=== PATIENT | female | born 2000 | race African-American/Black ===

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

== ENCOUNTER 2021-01-05 18:33 | Emergency (ER) | payer MEDICAID ==
[~2021-01-05] VITALS: Ht 160 cm; Wt 52.2 kg
[~2021-01-05 18:33] MED LIST changes: +ACET-2605 PO; +ACET-868 PO; +ASCO-352 PO; -ASCO500C17 GT; -CRAN3875 GT; +CRAN425C6 PO; +DIVA-78 PO; -DIVA500T2 PO; -LORA-259 GT; -MERO1PIG IV; -TEMA15CA GT; +TERA5CAP4 PO
--- NOTE | 2021-01-05 19:02 | NUR ---
THE PATIENT IS BIB RA FROM [facility] C/O BURNING SENSATION ON URINATION. ALERT AND ORIENTED X3. TRACHEOSTOMY PRESENT. IN ROOM AIR AND DENIES SOB. RESPIRATION REGULAR AND UNLABORED. WILL CONTINUE TO MONITOR THE PATIENT.
--- NOTE | 2021-01-05 19:04 | NUR ---
CARRERO CATH PRESENT UPON ARRIVAL
--- NOTE | 2021-01-05 19:05 | NUR ---
UPON ASSESSMENT, PT HAS RT UPPER ARM PICC LINE
--- NOTE | 2021-01-05 19:11 | NUR ---
URINE COLLECTED AND SENT TO THE LAB
[2021-01-05 19:18] LABS: BILIRUBIN,URINE Negative (NEGATIVE); COLOR,URINE YELLOW (YELLOW); LEUKOCYTE ESTERASE ,URINE Large (NEGATIVE); NITRITE, URINE Negative (NEGATIVE); PROTEIN,URINE 100 mg/dl (NEGATIVE); UGLUCOSE Negative (NEGATIVE); UROBILINOGEN,URINE 0.2 EU/dL (0.2)
--- NOTE | 2021-01-05 19:22 | NUR ---
REC'D REPORT FROM DESTINY BAIRD FOR VIKASH
--- NOTE | 2021-01-05 19:30 | NUR ---
PAT AT BEDSIDE FOR EVAL
[2021-01-05 19:31] LABS: RBC,URINE 21-50 /HPF (0-2)
[2021-01-05 19:32] LABS: BACTERIA,URINE 2+ /HPF (None Seen); SQUAMOUS EPITHELIAL CELL,UR Few /HPF (None Seen); WBC,URINE 51-80 /HPF (0-3)
[2021-01-05] MEDS ORDERED: MORPHINE SULFATE INJ 4 MG/ML DISP.SYRIN ONE (19:38)
[2021-01-05] MEDS ORDERED: ONDANSETRON HCL/PF 4 MG/2 ML VIAL ONE (19:38)
--- NOTE | 2021-01-05 19:47 | NUR ---
CALLED PHARMACY FOR ZINC OXIDE
[2021-01-05] MEDS ORDERED: ZINC OXIDE 56.7 GM TUBE TP PRN (20:00)
[2021-01-05] MEDS ORDERED: CEFTRIAXONE 1GM BAG (ER ONLY) 1 GM/50 ML PIGGYBACK IV ONE (20:00)
[2021-01-05] MEDS ORDERED: MORPHINE SULFATE INJ 2 MG/ML DISP.SYRIN IV ONE (20:00)
[2021-01-05] MEDS ORDERED: ONDANSETRON HCL/PF 4 MG/2 ML VIAL IV ONE (20:00)
[2021-01-05] MEDS ORDERED: CEFU500T66 PO (20:13)
[2021-01-05] MEDS ORDERED: CEFTRIAXONE 1GM BAG (ER ONLY) 50 ML IV ONE (20:15)
--- NOTE | 2021-01-05 20:20 | NUR ---
[facility] CALLED FOR TRANSPORT. ETA 45MIN.
--- NOTE | 2021-01-05 20:57 | NUR ---
Patient discharged to home in stable condition. Written and verbal after care instructions given. Patient verbalizes understanding of instruction. Pt taken home via ambulance
--- NOTE | 2021-01-05 20:57 | NUR ---
GAVE REPORT TO EMS
[2021-01-05 21:02] VITALS: BP 124/88
== END 2021-01-05 20:57 ==
LOC: ER 18:37
DX: N39.0 Urinary tract infection, site not specified (principal); B96.20 Unspecified Escherichia coli [E. coli] as the cause of diseases classified elsewhere; G82.20 Paraplegia, unspecified; Z91.048 Other nonmedicinal substance allergy status; Z79.899 Other long term (current) drug therapy
CPT/HCPCS: 51702; 81001; 84703; 87086; 96365; 96375; 99284; J0696; J2270; J2405

== ENCOUNTER 2021-01-07 11:59 | Emergency (ER) | payer MEDICAID ==
[~2021-01-07] VITALS: Ht 160 cm; Wt 52.2 kg
[~2021-01-07 11:59] MED LIST changes: +CEFU500T66 PO
--- NOTE | 2021-01-07 12:15 | NUR ---
BIB [facility] FROM [facility],C/O PAIN IN HER NECK WHEN SCHOOL BUS MECHANIC MOVED HER. PATIENT ALERT AND ORIENTED X3. IN ROOM AIR AND DENIES SOB. RESPIRATION REGULAR AND UNLABORED. WILL CONTINUE TO MONITOR THE PATIENT.
--- NOTE | 2021-01-07 13:25 | NUR ---
CALLED TRANSPORT [facility] WITH ETA OF 60 MINS PER ARIANNE .
--- NOTE | 2021-01-07 14:08 | NUR ---
REPORT GIVEN TO NURSE BAINS Addendum: 01/07/21 at 1409 by CECILY [facility] [phone]
--- NOTE | 2021-01-07 14:50 | NUR ---
Patient discharged in stable condition. Written and verbal after care instructions given. Patient verbalizes understanding of instruction but refused to sign discharge papers. Addendum: 01/07/21 at 1451 by CECILY mother aware
[2021-01-07 14:51] VITALS: BP 131/84
== END 2021-01-07 14:51 ==
LOC: ER 12:19
DX: M54.2 Cervicalgia (principal); Z88.8 Allergy status to other drugs, medicaments and biological substances; Z79.899 Other long term (current) drug therapy; Z93.0 Tracheostomy status
CPT/HCPCS: 72125; 99284; A4624

== ENCOUNTER 2021-01-30 13:11 | Inpatient (IN) | payer MEDICAID ==
[~2021-01-30] VITALS: Ht 165.1 cm; Wt 57.2 kg
--- NOTE | 2021-01-30 13:25 | NUR ---
[facility] C/O FEVER, COUGH AND ABSCESS L LEG. PT IS AAOX2, NOT IN RESPIRATORY DISTRESS, HOOKED TO MAORI LIAISON ADVISER, KEPT RESTED AND COMFORTABLE. WILL CONTINUE TO MONITOR.
--- NOTE | 2021-01-30 14:00 | NUR ---
PT IV LINE ESTABLISHED BLOOD DRAWN AND SENT TO LAB.
[2021-01-30] MEDS ORDERED: MORPHINE SULFATE INJ 2 MG/ML DISP.SYRIN ONE (14:34)
[2021-01-30] MEDS ORDERED: ACETAMINOPHEN ES 500 MG TABLET ONE (14:34)
[2021-01-30] MEDS ORDERED: MORPHINE SULFATE INJ 2 MG/ML DISP.SYRIN IV ONE (15:00)
[2021-01-30] MEDS ORDERED: PIPERACILLIN /TAZOBACTAM 3.375 G in IV D5W 50 ML IV ONE (15:00)
[2021-01-30] MEDS ORDERED: ACETAMINOPHEN 325 MG TABLET PO ONE (15:00)
[2021-01-30] MEDS ORDERED: IV NS 0.9% 1,000 ML BAG IV ONE (15:00)
--- NOTE | 2021-01-30 15:07 | NUR ---
REPLACED OLD CARRERO CATH PER PT REQUEST.
[2021-01-30 15:14] LABS: BASOPHILS % (AUTO) 0.3 % (0.0-2.0); EOSINOPHILS % (AUTO) 1.4 % (0.0-6.0); HEMATOCRIT 33 % (33-45); HEMOGLOBIN 10.7 g/dL (11.5-14.8); LYMPHOCYTES % (AUTO) 12.2 % (20.0-44.0); MEAN CORPUSCULAR HGB CONC 33 g/dl (31.0-36.0); MEAN CORPUSCULAR VOLUME 80 fL (82-100); MONOCYTES # (AUTO) 1.3 K/uL (0.1-1.30); MONOCYTES % (AUTO) 15.1 % (2.0-12.0); NEUTROPHILS # (AUTO) 5.9 K/uL (1.8-8.9); PLATELET COUNT (AUTO) 177 K/uL (150-450); RED BLOOD CELL COUNT(AUTO) 4.04 MIL/uL (4.0-5.2); WHITE BLOOD COUNT (AUTO) 8.4 K/uL (4.3-11.0)
--- NOTE | 2021-01-30 15:20 | NUR ---
SUBMITTED MOVE SHEET
--- NOTE | 2021-01-30 15:22 | NUR ---
CALLED NURSING SUP FOR BED
[2021-01-30 15:25] LABS: BILIRUBIN,URINE SMALL (NEGATIVE); COLOR,URINE YELLOW (YELLOW); LEUKOCYTE ESTERASE ,URINE SMALL (NEGATIVE); NITRITE, URINE NEGATIVE (NEGATIVE); PH,URINE 6.5 (5.0-8.0); PROTEIN,URINE TRACE mg/dl (NEGATIVE); UGLUCOSE NEGATIVE (NEGATIVE); UROBILINOGEN,URINE 0.2 EU/dL (0.2)
[2021-01-30 15:30] LABS: RBC,URINE TOO NUMEROUS TO COUN /HPF (0-2); WBC,URINE 51-80 /HPF (0-3)
[2021-01-30 15:31] LABS: BACTERIA,URINE 1+ /HPF (None Seen); SQUAMOUS EPITHELIAL CELL,UR Few /HPF (None Seen)
[2021-01-30 15:36] LABS: BAND % (MANUAL) 23 % (0.0-5.0); LYMPHOCYTES % (MANUAL) 9 % (16-48); NEUTROPHILS % (MANUAL) 50 (42-76)
[2021-01-30 15:37] LABS: EOSINOPHILS % (MANUAL) 2 % (0-4); MONOCYTES % (MANUAL) 16 % (0-11.0)
--- NOTE | 2021-01-30 16:11 | NUR ---
SPOKED TO DESTINY HOLLIDAY OF [facility]. PER MG THE SKIN TEAR STARTED AT 01/26/21. MD LUNDBERG.
[2021-01-30] MEDS ORDERED: IBUP-1957 PO (17:00)
[2021-01-30 17:09] LABS: ALANINE AMINOTRANSFERASE 9 U/L (12-78); ALBUMIN 2.6 g/dL (3.4-5.0); ALKALINE PHOSPHATASE 67 U/L (46-116); ASPARTATE AMINOTRANSFERASE 19 U/L (15-37); BILIRUBIN,DIRECT 0.1 mg/dL (0.0-0.2); BILIRUBIN,TOTAL 0.2 mg/dL (0.2-1.0); CALCIUM, SERUM 8.6 mg/dL (8.5-10.1); CARBON DIOXIDE 24 mmol/L (21-32); CHLORIDE 100 mmol/L (98-107); GLUCOSE 95 mg/dL (74-106); SODIUM SERUM 135 mmol/L (136-145); TOTAL PROTEIN, SERUM 7.6 g/dL (6.4-8.2); UREA NITROGEN, BLOOD 9 mg/dL (7-18)
--- NOTE | 2021-01-30 17:18 | NUR ---
RECEIVED VERBAL AUTH FROM [facility] FAX# TO FAX [facility]ACESHEET AND CLINICALS.
--- NOTE | 2021-01-30 17:27 | NUR ---
TELE BED 106
--- NOTE | 2021-01-30 17:39 | NUR ---
CALLED [facility], PAGED DR ROGERS
--- NOTE | 2021-01-30 17:51 | NUR ---
REPORT GIVEN TO DESTINY BELTRE FOR VIKASH.
--- NOTE | 2021-01-30 18:00 | NUR ---
RN NOTE RECEIVED REPORT FROM EXCEPTIONAL NEEDS TEACHER MADY.
[2021-01-30] MEDS ORDERED: VANCOMYCIN 1 GM VIAL ONE (18:01)
[2021-01-30] MEDS: VANCOMYCIN 1 GM in IV D5W 250 ML IV SCH (18:06)
[2021-01-30] MEDS ORDERED: CT SWABBABLE VALVE TRANS SET 1 EA INFUS.SET MC ONE (18:08)
[2021-01-30] MEDS ORDERED: IOHEXOL-300 100 ML VIAL IV ONE (18:08)
[2021-01-30] MEDS ORDERED: IV NS 0.9% 250 ML IV ONE (18:08)
[2021-01-30] MEDS ORDERED: MAGNESIUM HYDROXIDE 30 ML UDC PO PRN (18:30)
[2021-01-30] MEDS ORDERED: NA PHOS,M-B/NA PHOS,DI-BA 1 EA ENEMA RC PRN (18:30)
[2021-01-30] MEDS ORDERED: Z GUARD REMEDY 2 OZ OINT TP PRN (18:30)
[2021-01-30] MEDS ORDERED: MAG HYDROX/AL HYDROX/SIMETH 30 ML UDC PO PRN (18:30)
[2021-01-30] MEDS ORDERED: BISACODYL SUPP (10 MG) 10 MG/SUPP.RECT SUPP.RECT RC PRN (18:30)
[2021-01-30] MEDS ORDERED: ZOLPIDEM TARTRATE 5 MG TABLET PO PRN (18:30)
[2021-01-30] MEDS ORDERED: HYDROCODONE/APAP 5/325MG TABLET PO PRN (18:30)
[2021-01-30] MEDS ORDERED: ONDANSETRON HCL/PF 4 MG/2 ML VIAL IVP PRN (18:30)
--- NOTE | 2021-01-30 18:50 | NUR ---
RN NOTE RECEIVED PATIENT FROM ER VIA GURNEY ON ROOM AIR WITH TRACHEOSTOMY. VTS WNL, WILL CONTINUE TO MONITOR.
--- NOTE | 2021-01-30 20:00 | NUR ---
RN NOTE RECEIVED PT ALERT AND ORIENTED X 3. NO S/SX OF DISTRESS NOTED. PT WITH TRACH, CAPPED. TOLERATING ROOM AIR. DENIES ANY SOB. ADMITTED FOR SEPSIS. AFEBRILE AT THIS TIME, CARRERO IN PLACE, NO HEMATURIA NOTED. IV ON LHAND PATENT AND INTACT. ON TELE MONITORING SHOWS SINUS RHYTHM WITH HR OF 92. PT WITH WOUND DRESSING ON THIGH AND FOOT. PT REFUSED TO HAVE WOUND CHECKED AND TAKE PICTURES, EXPLAINED RISKS AND BENEFITS. ALL SAFETY MEASURES IN PLACE, CALL LIGHT WITHIN REACH, BED LOCKED IN LOWEST POSITION, SIDE RAILS UP. WILL CONTINUE TO MONITOR.
[2021-01-30 20:19] LABS: THYROID STIMULATING HORMONE 0.807 uIU/mL (0.358-3.74)
[2021-01-30 20:56] VITALS: BP 93/56
[2021-01-30] MEDS: IV NS 0.9% 1,000 ML IV PRN (21:09)
[2021-01-30] MEDS: METHOCARBAMOL (500MG) 500 MG TABLET PO SCH (21:09)
[2021-01-30] MEDS: LEVETIRACETAM (250 MG) 250 MG TABLET PO SCH (21:09)
[2021-01-30] MEDS: DIVALPROEX SODIUM 500 MG TABLET.DR PO SCH (21:09)
[2021-01-30] MEDS: ENOXAPARIN SODIUM 40 MG/0.4 ML DISP.SYRIN SQ SCH (21:09)
[2021-01-30] MEDS: VENLAFAXINE 37.5 MG TABLET PO SCH (21:09)
[2021-01-30] MEDS: QUETIAPINE FUMARATE 100 MG TABLET PO SCH (21:10)
[2021-01-31] MEDS: PIPERACILLIN /TAZOBACTAM 3.375 G in IV D5W 50 ML IV SCH ×3 (00:04→11:42)
--- NOTE | 2021-01-31 00:45 | NUR ---
RN NOTE PT REFUSED TO HAVE VITAL SIGNS CHECKED. NO SIGNS OF DISTRESS NOTED. CONTINUE ON TELE MONITORING SHOWS SINUS TACH WITH HR OF 102. WILL CONTINUE TO MONITOR.
[2021-01-31 04:00] VITALS: BP 115/68
[2021-01-31] MEDS: METHOCARBAMOL (500MG) 500 MG TABLET PO SCH ×3 (05:01→20:21)
[2021-01-31] MEDS: VANCOMYCIN 1 GM in IV D5W 250 ML IV SCH ×2 (05:05→17:40)
--- NOTE | 2021-01-31 07:30 | NUR ---
RN Notes Received Pt A/O x3 with no s/sx distress noted. Pt has a capped trach, tolerating RA well. Denies SOB. Pt has a mcgrath, no hematuria noted. IV on the left hand gauge 20 is patent and intact, flushed well. All safety measures in place, call light within reach, bed locked in lowest position with side rails up.
[2021-01-31 08:00] VITALS: BP 137/86
[2021-01-31] MEDS ORDERED: VANCOMYCIN 1 GM in IV D5W 250 ML IV SCH (08:00)
[2021-01-31] MEDS: VENLAFAXINE 37.5 MG TABLET PO SCH ×2 (08:26→20:21)
[2021-01-31] MEDS: ASCORBIC ACID 500 MG TABLET PO SCH ×2 (08:28→16:02)
[2021-01-31] MEDS: FAMOTIDINE (20 MG) 20 MG TABLET PO SCH (08:28)
[2021-01-31] MEDS: DOCUSATE SODIUM 100 MG CAPSULE PO SCH ×2 (08:28→16:08)
[2021-01-31] MEDS: DIVALPROEX SODIUM 500 MG TABLET.DR PO SCH ×2 (08:28→20:21)
[2021-01-31] MEDS: LEVETIRACETAM (250 MG) 250 MG TABLET PO SCH ×2 (08:29→20:21)
[2021-01-31] MEDS: GABAPENTIN 100 MG CAPSULE PO SCH ×2 (08:29→16:08)
--- NOTE | 2021-01-31 08:40 | NUR ---
RN Notes Pt complaining 9/10 neck pain. Offered pain medication, but pt refused [place]. Medication wasted, witnessed by DESTINY Jamil. Will notify MD of pain med refusal.
[2021-01-31] MEDS: ZINC SULFATE 220 MG CAPSULE PO SCH (08:44)
[2021-01-31] MEDS ORDERED: ZINC SULFATE 220 MG CAPSULE PO SCH (09:00)
[2021-01-31] MEDS: ACETAMINOPHEN 325 MG TABLET PO PRN ×2 (09:38→16:02)
[2021-01-31] MEDS: TERAZOSIN HCL 5 MG CAPSULE PO SCH (09:48)
--- NOTE | 2021-01-31 11:12 | NUR ---
telemedicine physician note trach suction done will monitor
--- NOTE | 2021-01-31 12:41 | NUR ---
DESTINY Notes Dr. Segundo at bedside, said it's okay to give 2mg morphine. Will follow up. Addendum: 01/31/21 at 1321 by WILMA NGUYEN RN trach care done ,suction done ,all needs attended
[2021-01-31] MEDS: MORPHINE SULFATE INJ 2 MG/ML DISP.SYRIN IV PRN ×3 (13:07→21:15)
--- NOTE | 2021-01-31 15:22 | NUR ---
RN Notes Wound culture per MD order.
[2021-01-31 16:00] VITALS: BP 105/69
[2021-01-31] MEDS: MEROPENEM 1 G in IV NS 0.9% 100 ML IV SCH ×2 (16:01→23:52)
[2021-01-31 17:28] LABS: BASOPHILS % (AUTO) 0.2 % (0.0-2.0); HEMATOCRIT 30 % (33-45); HEMOGLOBIN 9.9 g/dL (11.5-14.8); LYMPHOCYTES # (AUTO) 1.1 K/uL (0.8-4.8); LYMPHOCYTES % (AUTO) 19.5 % (20.0-44.0); MEAN CORPUSCULAR HGB CONC 33 g/dl (31.0-36.0); MEAN CORPUSCULAR VOLUME 81 fL (82-100); MONOCYTES # (AUTO) 0.8 K/uL (0.1-1.30); MONOCYTES % (AUTO) 14.8 % (2.0-12.0); NEUTROPHILS # (AUTO) 3.5 K/uL (1.8-8.9); NEUTROPHILS % (AUTO) 62.5 % (43.0-81.0); PLATELET COUNT (AUTO) 155 K/uL (150-450); RED BLOOD CELL COUNT(AUTO) 3.66 MIL/uL (4.0-5.2); WHITE BLOOD COUNT (AUTO) 5.6 K/uL (4.3-11.0)
[2021-01-31 17:44] LABS: CREATININE 0.9 mg/dL (0.6-1.3); PHOSPHORUS 3.7 mg/dL (2.5-4.9); POTASSIUM 4.1 mmol/L (3.5-5.1)
[2021-01-31] MEDS: ENOXAPARIN SODIUM 40 MG/0.4 ML DISP.SYRIN SQ SCH (17:55)
--- NOTE | 2021-01-31 18:00 | NUR ---
tele 5rn note new hl on rt fa eladio 24 inserted with good blood return
[2021-01-31 18:16] LABS: BAND % (MANUAL) 4 % (0.0-5.0); EOSINOPHILS % (MANUAL) 4 % (0-4); LYMPHOCYTES % (MANUAL) 16 % (16-48); MONOCYTES % (MANUAL) 7 % (0-11.0); NEUTROPHILS % (MANUAL) 69 (42-76)
--- NOTE | 2021-01-31 18:21 | NUR ---
RN Closing Notes Pt is in bed on RA, oxygen saturation 97%. Pt is sinus tachy with HR of 102. Pt has a mcgrath with 1100 ml output. Pt had one bm on shift, soft and brown. Pt was last given morphine for neck pain / at 1711, reported 3/10 pain at 1741. Pt has a left hand 20 gauge IV running Merrem @33.33ml/hr and right forearm 24 gauge IV Vancomycin running @150ml/hr. Safety measures in place with bed alarm on, in the lowest locked position, and call light within reach. Will continue to monitor.
[2021-01-31 20:00] VITALS: BP 105/72
--- NOTE | 2021-01-31 20:33 | NUR ---
Patient refused [place] after repeatedly calling for pain medicine. Stated that she only wants Morphine. Educated pt that medication is only every 4 hours. Patient stated she thought it had already been 4 hours but she will wait since it has not been.
[2021-01-31] MEDS ORDERED: MEROPENEM 500 MG in IV NS 0.9% 50 ML IV SCH (21:00)
[2021-01-31] MEDS: QUETIAPINE FUMARATE 100 MG TABLET PO SCH (21:14)
--- NOTE | 2021-01-31 22:30 | NUR ---
Patient refuses monday night wound pictures or a full skin check without pictures. Patient states "it is my body I can choose to do whatever I want. There is no reason you need to be checking my skin." Educated that it is hospital protocol to check for any skin issues especially with paraplegic patients. Patient still decline.
[2021-01-31] MEDS: IV NS 0.9% 1,000 ML IV PRN (23:53)
--- NOTE | 2021-02-01 | NUR ---
when unable to find extra extension cord for patient's cell phone weed inspector patient replies to nurse "F you, get out of here!"
--- NOTE | 2021-02-01 00:14 | NUR ---
refused midnight VS x3. Counted respirations and HR found from monitor and documented.
[2021-02-01] MEDS: MORPHINE SULFATE INJ 2 MG/ML DISP.SYRIN IV PRN ×5 (01:31→20:30)
[2021-02-01 04:00] VITALS: BP 102/67
--- NOTE | 2021-02-01 05:15 | NUR ---
patient refused am labs including vanco trough. Educated patient that this lab is very important to see how m uch of this drug is in bloodstream because its a potential nephrotoxin/ can affect the kidneys. Patient agreeable for lab to try and draw blood
[2021-02-01] MEDS: METHOCARBAMOL (500MG) 500 MG TABLET PO SCH ×3 (05:41→20:29)
--- NOTE | 2021-02-01 05:50 | NUR ---
[employer] Home Technician unable to get blood for Vanco trough or any other AM labs d/t hard stick. Per clean in places operator. They will resend different clean in places operator later to retry later. Will hold vanco until labs can be drawn.
[2021-02-01] MEDS: VANCOMYCIN 1 GM in IV D5W 250 ML IV SCH (06:00)
--- NOTE | 2021-02-01 07:00 | NUR ---
Patient has been A&Ox4. VSS. Medicated for gen pain and neck pain x3 per patient c/o severe pain. Tolerating IVF and IV ABX well. No signs of distress. Suctioned trach x2, clear thin sputum.
[2021-02-01] MEDS: IV NS 0.9% 1,000 ML IV PRN (07:17)
[2021-02-01] MEDS: FAMOTIDINE (20 MG) 20 MG TABLET PO SCH (07:30)
--- NOTE | 2021-02-01 07:30 | NUR ---
Pbhlebotomist able to get blood -vanco trough pending. endorsed to next shift.
--- NOTE | 2021-02-01 07:46 | NUR ---
RN OPENING NOTES Pt is Awake, alert and oriented x 3-4, no respiratory distress, no SOB. On IV NS @ 75cc/hr. Safety precautions implemented, bed locked in lowest position, call light within reach.
[2021-02-01 07:51] LABS: BASOPHILS % (AUTO) 0.3 % (0.0-2.0); EOSINOPHILS % (AUTO) 5.5 % (0.0-6.0); HEMATOCRIT 31 % (33-45); HEMOGLOBIN 10.1 g/dL (11.5-14.8); LYMPHOCYTES % (AUTO) 24.7 % (20.0-44.0); MEAN CORPUSCULAR HGB CONC 32 g/dl (31.0-36.0); MEAN CORPUSCULAR VOLUME 83 fL (82-100); MONOCYTES # (AUTO) 0.6 K/uL (0.1-1.30); NEUTROPHILS # (AUTO) 2.3 K/uL (1.8-8.9); NEUTROPHILS % (AUTO) 55.5 % (43.0-81.0); PLATELET COUNT (AUTO) 160 K/uL (150-450); RED BLOOD CELL COUNT(AUTO) 3.73 MIL/uL (4.0-5.2); WHITE BLOOD COUNT (AUTO) 4.2 K/uL (4.3-11.0)
[2021-02-01 08:00] VITALS: BP 117/80
[2021-02-01 08:19] LABS: ALBUMIN 2.3 g/dL (3.4-5.0); BILIRUBIN,TOTAL 0.2 mg/dL (0.2-1.0); CALCIUM, SERUM 8.8 mg/dL (8.5-10.1); CREATININE 0.7 mg/dL (0.6-1.3); MAGNESIUM 1.9 mg/dL (1.8-2.4); PHOSPHORUS 3.7 mg/dL (2.5-4.9); POTASSIUM 4.2 mmol/L (3.5-5.1); TOTAL PROTEIN, SERUM 6.9 g/dL (6.4-8.2)
[2021-02-01] MEDS: LEVETIRACETAM (250 MG) 250 MG TABLET PO SCH ×2 (08:28→20:29)
[2021-02-01] MEDS: MEROPENEM 1 G in IV NS 0.9% 100 ML IV SCH ×3 (08:29→23:16)
[2021-02-01] MEDS: ACETAMINOPHEN 325 MG TABLET PO PRN (08:32)
[2021-02-01] MEDS: DOCUSATE SODIUM 100 MG CAPSULE PO SCH ×2 (08:47→16:03)
[2021-02-01] MEDS: DIVALPROEX SODIUM 500 MG TABLET.DR PO SCH ×2 (08:48→20:29)
[2021-02-01] MEDS: GABAPENTIN 100 MG CAPSULE PO SCH ×2 (08:48→16:03)
[2021-02-01] MEDS: ASCORBIC ACID 500 MG TABLET PO SCH ×2 (08:48→16:05)
[2021-02-01] MEDS: VENLAFAXINE 37.5 MG TABLET PO SCH ×2 (08:48→20:29)
[2021-02-01] MEDS: ZINC SULFATE 220 MG CAPSULE PO SCH (08:48)
[2021-02-01] MEDS: TERAZOSIN HCL 5 MG CAPSULE PO SCH (08:48)
--- NOTE | 2021-02-01 09:30 | NUR ---
REFUSED AM Meds Pepcid, colace, Depakote, Effexor, Hytrin, Neurontin, Vit C, and Zinc.
--- NOTE | 2021-02-01 09:37 | NUR ---
WOUND CARE CONSULT: REVIEWED CHART, NURSING DOCUMENTATION AND PHOTOS WHICH INDICATE THIGH WOUND AND LOWER EXTREMITY WOUNDS, PRESENT ON ADMISSION. PT IS KNOWN TO HAVE HISTORY OF SACRAL SCAR WELL. DR ROMERO AND DR THOMAS NOTIFIED OF SURGICAL AND DPM CONSULT REQUESTS. FIRST STEP LOW AIRLOSS MATTRESS IS ON ORDER. RECOMMENDATIONS MADE FOR SKIN PROTECTION. DISCUSSED WITH NURSING STAFF. MD IN AGREEMENT WITH PLAN OF CARE.
[2021-02-01] MEDS: ENSURE ENLIVE CHOC 237 ML CAN PO SCH ×2 (11:59→16:05)
[2021-02-01 12:00] VITALS: BP 118/79
[2021-02-01 16:00] VITALS: BP 133/89
[2021-02-01] MEDS: ENOXAPARIN SODIUM 40 MG/0.4 ML DISP.SYRIN SQ SCH (17:33)
--- NOTE | 2021-02-01 18:52 | NUR ---
RN CLOSING NOTES Pt is A/O X 4, capped with no SOB, no respiratory distress. Tele reading sinus rhythm. Refused AM supplements (see previous notes), wound care rendered, complains of pain back/neck relieved after administration of morphine. Declined to be reposition-agreed only once. Left hand/Right FA IV site with no s/sx of infiltration, On IV Abx with no adverse reaction noted. Safety precautions implemented, bed locked in lowest position, call light within reach.
--- NOTE | 2021-02-01 19:15 | NUR ---
RN OPENING NOTE PATIENT CURRENTLY RESTING IN BED. AWAKE, ALERT AND ORIENTED X 4. ABLE TO MAKE NEEDS KNOWN. DENIES PAIN AT THIS TIME. CONTINUES ON ROOM AIR WITH NO S/SX OF RESPIRATORY DISTRESS NOTED. TRACH IS CAPPED AT THIS TIME. IV ACCESS TO RIGHT FOREARM #24G AND LEFT HAND #20G BOTH INTACT, PATENT AND SALINE LOCKED. CONTINUES ON IV ABX. CONTINUES ON WOUND TREATMENTS. CALL LIGHT WITHIN REACH. ASPIRATION, FALL AND SAFETY PRECAUTIONS MAINTAINED. WILL CONTINUE TO MONITOR.
--- NOTE | 2021-02-01 20:00 | NUR ---
RN NOTE PATIENT REFUSED 20:00 VITAL SIGNS X 3 ATTEMPTS. PATIENT STATES SHE "JUST WANTS TO SLEEP AND NOT BE INTERRUPTED". DISCUSSED THE IMPORTANCE OF VITAL SIGN CHECKS WITH PATIENT CONTINUING TO REFUSE. PATIENT IS CURRENTLY ON TELE MONITOR WITH SR 89. WILL CONTINUE TO MONITOR.
[2021-02-01] MEDS: QUETIAPINE FUMARATE 100 MG TABLET PO SCH (21:06)
[2021-02-02] VITALS: BP 128/89
[2021-02-02 04:00] VITALS: BP 101/63
--- NOTE | 2021-02-02 04:00 | NUR ---
RN NOTE SPECIALTY MATTRESS APPLIED TO BED DURING ADL CARE. PATIENT RESTING COMFORTABLY. WILL CONTINUE TO MONITOR.
[2021-02-02] MEDS: METHOCARBAMOL (500MG) 500 MG TABLET PO SCH ×2 (04:14→13:23)
[2021-02-02] MEDS: MORPHINE SULFATE INJ 2 MG/ML DISP.SYRIN IV PRN ×3 (04:17→13:28)
--- NOTE | 2021-02-02 06:10 | NUR ---
RN CLOSING NOTE PATIENT CURRENTLY SLEEPING IN BED. AWAKE, ALERT AND ORIENTED X 4. ABLE TO MAKE NEEDS KNOWN. DENIES PAIN AT THIS TIME. CONTINUES ON ROOM AIR WITH NO S/SX OF RESPIRATORY DISTRESS NOTED. TRACH IS CAPPED AT THIS TIME. IV ACCESS TO RIGHT FOREARM #24G AND LEFT HAND #20G BOTH INTACT, PATENT AND SALINE LOCKED. CONTINUES ON IV ABX. CONTINUES ON WOUND TREATMENTS. CONTINUES ON SPECIALTY MATTRESS. CALL LIGHT WITHIN REACH. ASPIRATION, FALL AND SAFETY PRECAUTIONS MAINTAINED. WILL ENDORSE PLAN OF CARE TO ONCOMING SHIFT.
--- NOTE | 2021-02-02 06:42 | NUR ---
RN NOTE PATIENT REFUSED LABS THIS AM.
--- NOTE | 2021-02-02 07:27 | NUR ---
RN NOTE PATIENT IS IN BED WITH HOB AT SEMI BLACKMON'S POSITION. PATIENT IS AOX4. PATIENT IS ON ROOM AIR WITH NO SIGNS OF LABORED BREATHING. TRACH IS CAPPED. CARRERO CATH IS IN PLACE. LHAND #20 AND RFA #24 ARE PATENT AND INTACT. BED IS LOCKED IN THE LOWEST POSITION, 3 GUARD RAILS RAISED, CALL ORELLANA WITHIN REACH, AND ALL HOSPITAL SAFETY PRECAUTIONS ARE BEING FOLLOWED. WILL CONTINUE TO MONITOR THROUGHOUT SHIFT.
[2021-02-02 08:00] VITALS: BP 131/78
[2021-02-02 08:29] VITALS: BP 131/78
[2021-02-02] MEDS: MEROPENEM 1 G in IV NS 0.9% 100 ML IV SCH (08:29)
[2021-02-02] MEDS: TERAZOSIN HCL 5 MG CAPSULE PO SCH (08:29)
[2021-02-02] MEDS: ASCORBIC ACID 500 MG TABLET PO SCH (08:30)
[2021-02-02] MEDS: DOCUSATE SODIUM 100 MG CAPSULE PO SCH ×2 (08:30→08:37)
[2021-02-02] MEDS: DIVALPROEX SODIUM 500 MG TABLET.DR PO SCH (08:30)
[2021-02-02] MEDS: ZINC SULFATE 220 MG CAPSULE PO SCH (08:30)
[2021-02-02] MEDS: LEVETIRACETAM (250 MG) 250 MG TABLET PO SCH (08:30)
[2021-02-02] MEDS: FAMOTIDINE (20 MG) 20 MG TABLET PO SCH (08:30)
[2021-02-02] MEDS: VENLAFAXINE 37.5 MG TABLET PO SCH (08:30)
[2021-02-02] MEDS: GABAPENTIN 100 MG CAPSULE PO SCH (08:30)
[2021-02-02] MEDS: ENSURE ENLIVE CHOC 237 ML CAN PO SCH (08:33)
--- NOTE | 2021-02-02 09:19 | NUR ---
RN NOTE ENDORSED TO DESTINY WESLEY FOR VIKASH.
--- NOTE | 2021-02-02 13:17 | NUR ---
RN NOTE RN CALLED AND GAVE REPORT TO FARIDA AT [facility]. ALL QUESTIONS WERE ANSWERED.
--- NOTE | 2021-02-02 14:43 | NUR ---
DISCHARGE NOTE PT DISCHARGED VIA [facility] ACCOMPANIED BY MARY BENTLEY IS ATTENDING. WOUND CARE PROVIDED AND DOCUMENTATION TAKEN. PT IS A&OX4, BREATHING EVEN AND UNLABORED ON RA. PT TRACH IS CAPPED AND INTACT. PT ENDORSES NO PAIN. FINAL VS ARE 106/82, 86 HR, 20 RR, 97.8 F, 97% SPO2. ALL FORMES SIGNED, REPORT GIVEN TO FARIDA AT [facility].
== END 2021-02-02 15:29 | DRG 720 ==
LOC: ER 13:20 → MEDSG1 17:41 → TELE1 21:21 → MEDSG1 02-02 08:42
PROVIDERS: ATTEND Internal Medicine
DX: A41.9 Sepsis, unspecified organism (principal); J96.10 Chronic respiratory failure, unspecified whether with hypoxia or hypercapnia; L89.516 Pressure-induced deep tissue damage of right ankle; R53.2 Functional quadriplegia; K56.7 Ileus, unspecified; L89.626 Pressure-induced deep tissue damage of left heel; L89.523 Pressure ulcer of left ankle, stage 3; Z93.0 Tracheostomy status; S71.101A Unspecified open wound, right thigh, initial encounter; L03.116 Cellulitis of left lower limb; L89.616 Pressure-induced deep tissue damage of right heel; G40.909 Epilepsy, unspecified, not intractable, without status epilepticus; Z98.1 Arthrodesis status; N39.0 Urinary tract infection, site not specified; Z20.822 Contact with and (suspected) exposure to COVID-19; D64.9 Anemia, unspecified; G89.29 Other chronic pain; Z74.01 Bed confinement status; V89.2XXS Person injured in unspecified motor-vehicle accident, traffic, sequela; N12 Tubulo-interstitial nephritis, not specified as acute or chronic; X58.XXXA Exposure to other specified factors, initial encounter; Y93.9 Activity, unspecified; Y92.89 Other specified places as the place of occurrence of the external cause
CPT/HCPCS: 31720; 36415; 71045-TC; 73701-TC; 80048-TC; 80053-TC; 80061-TC; 80076-TC; 80164-TC; 80202-TC; 81001; 82550-TC; 83605-TC; 83735-TC; 83880; 84100-TC; 84443-TC; 84484-TC; 84702-TC; 85025-TC; 85730-TC; 87040-TC; 87070-TC; 87081-TC; 87086-TC; 87186-TC; A4623; A6253; A6403; G0378; J1650; J2185; J2270; J2543; J3370; J7030; J7050; J7060; Q9967; U0003

== ENCOUNTER 2021-03-19 02:28 | Emergency (ER) | payer MEDICAID ==
[~2021-03-19] VITALS: Ht 160 cm; Wt 67.1 kg
[~2021-03-19 02:28] MED LIST changes: -CEFU500T66 PO; -SENN-261 PO
--- NOTE | 2021-03-19 02:32 | NUR ---
PATIENT CAME TO ER BED 6 [facility] FROM [facility]. PATIENT STATES THAT SHE HAS TURNED HER HEAD WRONGLY WHICH CAUSED HER TO HAVE NECK PAIN. PATIENT IS ALERT AND ORIENTED x4. BREATHING EVENLY AND UNLABORED ON ROOM AIR. CONNECTED TO THE MONITOR.
--- NOTE | 2021-03-19 02:50 | NUR ---
taken to radiology
--- NOTE | 2021-03-19 02:57 | NUR ---
returned from radiology
[2021-03-19] MEDS ORDERED: ACETAMINOPHEN 325 MG TABLET PO ONE (03:00)
[2021-03-19] MEDS ORDERED: ACETAMINOPHEN ES 500 MG TABLET ONE (03:06)
--- NOTE | 2021-03-19 04:34 | NUR ---
attempted to give report, left voice message
--- NOTE | 2021-03-19 04:37 | NUR ---
called [facility] ambulance. eta 45-60min
[2021-03-19] MEDS ORDERED: CLONIDINE HCL 0.1 MG TABLET ONE (04:38)
[2021-03-19] MEDS ORDERED: CLONIDINE HCL 0.1 MG TABLET PO ONE (05:00)
--- NOTE | 2021-03-19 05:05 | NUR ---
attempted to give report, line busy
--- NOTE | 2021-03-19 05:14 | NUR ---
attempted to give report, line busy
--- NOTE | 2021-03-19 05:20 | NUR ---
attempted to give report, line busy
--- NOTE | 2021-03-19 05:25 | NUR ---
gave report to ems
--- NOTE | 2021-03-19 05:26 | NUR ---
Patient discharged to home in stable condition. Written and verbal after care instructions given. Patient verbalizes understanding of instruction. Pt [facility] ambulance [facility]
--- NOTE | 2021-03-19 05:27 | NUR ---
attempted to give report, line busy
--- NOTE | 2021-03-19 05:31 | NUR ---
attempted to give report, line busy
[2021-03-19 05:52] VITALS: BP 117/68
== END 2021-03-19 05:31 ==
LOC: ER 02:38
DX: M54.2 Cervicalgia (principal); G82.20 Paraplegia, unspecified; I10 Essential (primary) hypertension; G89.29 Other chronic pain; F32.9 Major depressive disorder, single episode, unspecified; Z91.048 Other nonmedicinal substance allergy status; Z79.899 Other long term (current) drug therapy
CPT/HCPCS: 70490-TC